=== PATIENT | male | born 2000 | race Caucasian/White ===

== ENCOUNTER 2025-01-16 09:00 | Outpatient (RCR) | payer OTHER, SELFPAY | END 2025-05-16 23:59 | disposition home or self-care (01) | PROVIDERS: Visit Provider Physician Assistant Medical | DX: M25.511 Pain in right shoulder (principal); G89.29 Other chronic pain; M54.2 Cervicalgia; Z51.89 Encounter for other specified aftercare | CPT/HCPCS: 97110; 97140; 97161 ==